=== PATIENT | female | born 1950 | race Caucasian/White ===

== ENCOUNTER 2022-11-11 13:29 | Emergency (ER) | payer MEDICARE ==
[~2022-11-11] VITALS: Ht 162.6 cm; Wt 78.9 kg
[2022-11-11 13:39] VITALS: BP 132/73
--- NOTE | 2022-11-11 14:06 | ER.PDOC ---
General Chief Complaint: Extremities Stated Complaint: FALL,KNEE PAIN Time seen by MD: 14:06 Source: patient, family Exam Limitations: no limitations History of Present Illness Initial Comments was walking a dog and was tripped Abrasion to pre-tibial and palms Ambulatory Takes coumadin for AF. No head trauma. Only has left knee pain No hip tenderness No back pain. Lives in [facility] and driving back tomorrow Onset: just prior to arrival Context: fall Severity: mild Allergies: Coded Allergies: No Known Drug Allergies (Verified Allergy, Unknown, 11/11/22) Past Medical History Medical History: arrhythmia, cancer, cardiac problems Surgical History: hysterectomy, tonsillectomy Family History Significant Family History: no pertinent family hx Social History Smoking: non-smoker, other (quit 20 years ago) Alcohol Use: none Drug Use: none Reviewed Nursing Reviewed: Vital Signs, Abn. Noted Review of Systems Constitutional: no symptoms reported EENTM: no symptoms reported Respiratory: no symptoms reported Cardiovascular: no symptoms reported Genitourinary: no symptoms reported Musculoskeletal: see HPI Skin: see HPI Psychiatric/Neurological: no symptoms reported All Other Systems: Reviewed and Negative Physical Exam General Appearance: Alert, No Apparent Distress, Anxious Foot: nml inspection Ankle: nml inspection Knee: nml ROM, tenderness, swelling, ecchymosis Neuro/Vasc/Tendon: sensation nml Skin: warm/dry (superficial abrasion left pretibial area and minimal heel of palms) Head/ENT: nml inspection Neck/Back: nml inspection Abdomen: non-tender Comments Full ROM Hips o pelvic bony pain sl swelling and ecchymosis lef pretibial plataeu Results/Orders Results/Orders Vital Signs Date Time Temp Pulse Resp B/P (MAP) Pulse Ox O2 Delivery O2 Flow Rate FiO2 11/11/22 13:39 98.1 63 18 132/73 (92) 98 Room Air* 0 21 11/11/22 13:39 98.1 63 18 98 11/11/22 13:39 98.1 63 18 Progress Progress offered xray if desired but not necessary based on my exam. Risk is from eccymosis ER DEPART Departure Time of Disposition: 14:26 Disposition: 01 HOME / SELF CARE / HOMELESS Impression: Primary Impression: Contusion of left knee Additional Impressions: Multiple abrasions Anticoagulation adequate Condition: Stable Referrals: PCP,UNKNOWN (PCP) PRIMARY CARE PROVIDER Comments ice packs frequently antibiotic ointment of choice f/u as needed Duration or Time Spent with Pa: 15 Problem Qualifiers AMMY PETTIT MD Nov 11, 2022 14:06
== END 2022-11-11 14:38 | disposition home or self-care (01) ==
LOC: ER 13:29
DX: S80.02XA Contusion of left knee, initial encounter (principal); W19.XXXA Unspecified fall, initial encounter; Y93.K1 Activity, walking an animal; Y92.89 Other specified places as the place of occurrence of the external cause; Y99.8 Other external cause status; Z85.9 Personal history of malignant neoplasm, unspecified; Z90.710 Acquired absence of both cervix and uterus; Z90.89 Acquired absence of other organs
CPT/HCPCS: 99281